=== PATIENT | female | born 1980 ===

== ENCOUNTER → 2020-12-23 | Outpatient (REF) ==
--- NOTE | 2020-12-23 11:31 | REPPI ---
INDICATION: DISABILITY DIAGNOSIS DETERMINATION SHOULDER PAIN COMPARISON: Four views right shoulder. FINDINGS: There is no evidence of acute fracture, dislocation, or intrinsic bone disease.Joint spaces are unremarkable. IMPRESSION: Negative right shoulder series. <Electronically signed by Kenney Borrero > 12/23/20 1122
== END ==
LOC: M PLAIMG 10:03
PROVIDERS: ATTEND Internal Medicine
DX: M25.511 Pain in right shoulder (principal)